=== PATIENT | female | born 1955 | race Two or more races ===

== ENCOUNTER → 2017-05-08 | Emergency (ER) | payer OTHER ==
[~2017-05-08] VITALS: Ht 154.9 cm; Wt 47.6 kg
[~2017-05-08] MED LIST: CARTIA XT120 MG; CEFPROZIL500 MG; CEFTRIAXONE1 GM IJ; DOLOGEN CAPLET1 EACH PO; DOLOGESIC 500-1 EACH PO; IPRAT-ALBUT 0.5-3 ML IH; LOSARTAN POTASS25 MG; MEDROLPACK PO; PEPCID20 MG; PRILOSEC10 MG; VITAMIN B122500 MC1; VITAMIN C60 MG; ZANTAC150 MG
== END | disposition home or self-care (01) ==
LOC: ER
DX: J06.9 Acute upper respiratory infection, unspecified (principal)

== ENCOUNTER 2017-10-15 16:34 | Emergency (ER) | payer OTHER ==
[~2017-10-15] VITALS: Ht 154.9 cm; Wt 49.0 kg
[2017-10-16] MEDS ORDERED: INTESTINEX680 M1 PO (01:55)
== END 2017-10-16 02:03 | disposition home or self-care (01) ==
LOC: ER 16:34
DX: K58.9 Irritable bowel syndrome, unspecified (principal)

== ENCOUNTER 2018-05-05 11:35 | Emergency (ER) | payer OTHER ==
[~2018-05-05] VITALS: Ht 154.9 cm; Wt 49.0 kg
[~2018-05-05 11:35] MED LIST changes: +INTESTINEX680 M1 PO
== END 2018-05-05 15:45 | disposition home or self-care (01) ==
LOC: ER 11:35
DX: M25.562 Pain in left knee (principal)

== ENCOUNTER 2018-07-07 12:59 | Emergency (ER) | payer OTHER ==
[~2018-07-07] VITALS: Ht 154.9 cm; Wt 49.0 kg
== END 2018-07-07 17:12 | disposition home or self-care (01) ==
LOC: ER 12:59
DX: N39.0 Urinary tract infection, site not specified (principal)

== ENCOUNTER 2019-10-10 15:49 | Emergency (ER) | payer OTHER ==
[~2019-10-10] VITALS: Ht 154.9 cm; Wt 48.1 kg
== END 2019-10-10 19:08 | disposition home or self-care (01) ==
LOC: ER 15:49
DX: R10.84 Generalized abdominal pain (principal)